=== PATIENT | female | born 1975 | race Caucasian/White ===

== ENCOUNTER 2021-06-30 10:11 | Emergency (ER) | payer OTHER, SELFPAY ==
--- NOTE | ~2021-06-30 | XR_ITS ---
EXAMINATION: XR knee RT min 4V DATE: 06/30/2021 10:37 INDICATION: Right knee pain TECHNIQUE: Five views of the right knee were obtained. COMPARISON: None. FINDINGS: Alignment is normal. No fracture or osteochondral lesion. There is tricompartmental osteoar thritis, severe in the patellofemoral compartment, moderate in the medial compartment, and mild in th e lateral compartment. No joint effusion/synovitis. Soft tissues are unremarkable. IMPRESSION: 1. 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 Reviewed, dictated and finalized at location A.
[2021-06-30 10:18] VITALS: BP 133/81; PULSE 74; RESP 20; TEMP 36.7; O2SAT 99
[2021-06-30 10:25] VITALS: BP 133/81; PULSE 74; RESP 20; TEMP 36.7; O2SAT 99
--- NOTE | 2021-06-30 10:50 | ED.LOWEXIN ---
HPI - Extremity Injury (Lower) General Chief Complaint: Extremity Injury, Lower Stated Complaint: right knee injury Time Seen by Provider: 06/30/21 10:35 Source: patient and RN notes reviewed Mode of arrival: ambulatory Limitations: no limitations History of Present Illness HPI Narrative: Patient presents today complaining of an right knee injury. Patient has chronic pain to the right knee for which she received steroid injections. Yesterday she was getting on a bus for a float trip when her knee hyperflexed when she was going down some stairs when she heard a large pop, causing significant pain. She currently rates her pain 06/25 and has been applying ice and taking ibuprofen. Pain increases with any weightbearing. MD complaint: knee injury Related Data Home Medications Medication Instructions Recorded Confirmed atorvastatin 10 mg PO DAILY 06/30/21 06/30/21 empagliflozin [Jardiance] 10 mg PO DAILY 06/30/21 06/30/21 escitalopram oxalate 20 mg PO DAILY 06/30/21 06/30/21 insulin glargine [Lantus Solostar 24 unit SUBCUT DAILY 06/30/21 06/30/21 U-100 Insulin] lisinopril 20 mg PO DAILY 06/30/21 06/30/21 metformin 1,500 mg PO HS 06/30/21 06/30/21 Allergies Allergy/AdvReac Type Severity Reaction Status Date / Time No Known Allergies Allergy Unverified 04/09/16 16:27 Review of Systems Review of Systems: CONSTITUTIONAL: Denies body aches, fever, chills, or sweats. EYES: Denies visual changes, redness, or discharge. ENT: Denies rhinorrhea, congestion, sore throat, or otalgia. CARDIOVASCULAR: Denies chest pain, palpitations, or edema. RESPIRATORY: Denies cough or dyspnea. GASTROINTESTINAL: Denies abdominal pain, nausea, vomiting, or diarrhea. GENITOURINARY: Denies dysuria or hematuria. SKIN: Denies rash, itching, or wounds. MUSCULOSKELETAL: Denies back pain, or myalgia. + Right knee injury NEUROLOGIC: Denies headache, numbness, tingling, or weakness. PSYCH: Denies depression or anxiety. [facility] Past Medical History Medical History (Updated 06/30/21 @ 10:55 by Rosario Little, [employer]ENDING [employer], ) Anxiety Depression Diabetes High cholesterol Hypertension Social History Social History Gender identity (if verbalized by the patient): Female Comments At time of signature, I have reviewed and agree with nursing past medical, surgical, social and family history unless otherwise noted. Please see nursing chart for further information. There is no relevant family history pertinent to the presenting complaint Exam Narrative: GENERAL: Well-appearing, well-nourished, and in no acute distress. HEAD: Normocephalic, atraumatic. EYES: EOMI. No redness or drainage. Conjunctivae normal. ENT: Mucous membranes pink and moist. NECK: Normal AROM. CHEST: No respiratory distress. EXTREMITIES: Right knee: Tenderness to the lateral and medial joint line as well as below the patella. Tenderness to the posterior knee as well. Difficult to assess edema due to patient's body habitus. No ecchymosis or erythema noted. Pain with any range of motion. Distal sensation intact. Capillary refill normal. Pedal pulse normal. SKIN: Warm, dry, no rash. Capillary refill normal. Normal skin turgor. NEURO: No focal deficits. Alert and oriented x3. Gait steady. PSYCH: Normal affect. No signs of depression or anxiety. Course Vital Signs Vital signs: Vital Signs Temperature 98.0 F 06/30/21 10:18 Pulse Rate 74 06/30/21 10:18 Respiratory Rate 20 06/30/21 10:18 Blood Pressure 133/81 06/30/21 10:18 Pulse Oximetry 99 06/30/21 10:18 Temperature 99.9 F H 06/30/21 10:37 Pulse Rate 100 06/30/21 10:37 Respiratory Rate 16 06/30/21 10:37 Blood Pressure 145/78 H 06/30/21 10:37 Pulse Oximetry 98 06/30/21 10:37 Reviewed. Pt has been instructed to follow up with her PCP regarding her elevated blood pressure today. MDM - Extremity Injury (Lower) Differential Diagnosis Differential diagnosis: Likely other (Ligament inj
== END 2021-06-30 10:58 | disposition home or self-care (01) ==
PROVIDERS: Emergency Provider Nurse Practitioner; PCP Nurse Practitioner Family
DX: S89.91XA Unspecified injury of right lower leg, initial encounter (principal); X50.9XXA Other and unspecified overexertion or strenuous movements or postures, initial encounter; F41.9 Anxiety disorder, unspecified; F32.9 Major depressive disorder, single episode, unspecified; E11.9 Type 2 diabetes mellitus without complications; E78.00 Pure hypercholesterolemia, unspecified; I10 Essential (primary) hypertension
CPT/HCPCS: 73564; 99203; G0463